=== PATIENT | female | born 1975 | race Caucasian/White ===

== ENCOUNTER 2016-08-09 12:19 | Emergency (ER) | payer MEDICARE ==
--- NOTE | ~2016-08-09 | US61 ---
[facility] A Service of [facility] RADIOLOGY TEXT RESULTS PATIENT: MONTSE BELL LOCATION: SED : 73 UNIT #: [id number] AGE: [address]: Rogerio Hanna MD SEX: F ORDER DR: [id number] [place] [id number] E MR#: [id number] Acc #: [id number] NAME: MONTSE BELL : 1975 SEX: F STUDY DATE/TIME: 08/09/2016 16:18 UNIT: SED ROOM: STUDY DESCRIPTION: US /Mat <[id number] / Attending Physician: Rogerio Hanna M.D. Referring Physician: Rogerio Hanna M.D. Ordering Physician: Rogerio Hanna M.D. Primary Care Physician: Michelle Avalos M.D. MEDICAL IMAGING REPORT This report is preliminary unless electronic signature is present. EXAM Pelvic ultrasound, transabdominal and transvaginal technique. DATE OF EXAM 08/09/2016 INDICATIONS 40-year-old female with a quantitative beta hCG of 1118, vaginal bleeding today. Sonographic imaging of the pelvis was performed transabdominally and then transvaginally for better evaluation of the adnexa and ovarian structures. COMPARISON No comparisons. FINDINGS TRANSABDOMINAL IMAGING Neither ovary identified transabdominally. Uterus visualize but better characterized transvaginally. TRANSVAGINAL IMAGING Uterus measures 8.4 x 4.5 x 6.1 cm. Fluid collection essentially within the uterus is present but nonspecific. No yolk sac or pole identified. Right ovary measures 2.1 x 1.7 cm and demonstrates good flow. Left ovary not clearly identified. No free fluid or drainable fluid collection. IMPRESSION [facility] A Service [facility] RADIOLOGY TEXT RESULTS PATIENT: MONTSE BELL LOCATION: SED : 73 UNIT #: [id number] AGE: [address]: Rogerio Hanna MD SEX: F ORDER DR: 1. No intrauterine identified in this patient with positive beta hCG. Fluid within the endometrial canal that is nonspecific. Based on the provided history and imaging features, the most likely explanation is a recent blighted ovum or early miscarriage. Early intrauterine or ectopic not excluded at this point but both are felt to be less likely. Suggest a repeat short-term followup ultrasound, MEDICAL OFFICE SUPERVISOR referral and repeat beta hCG levels to exclude the possibility of ectopic in this patient. 2. Right ovary unremarkable, left ovary not identified. STAT * RESULT Please note that this report did not become available for review or signature until 08/13/16 Dictated by... Rogerio Mcbride M.D. THIS IS AN ELECTRONICALLY VERIFIED REPORT Rogerio Mcbride M.D. at 08/13/2016 4:53 PM Delfina TD: 08/09/2016 17:05 JOB #: [id number] MEDICAL IMAGING REPORT Page 1 of 1
[2016-08-09] MEDS ORDERED: CELEXA (12:21)
[2016-08-09 13:35] LABS: URINE SOURCE CLEAN CATCH
[2016-08-09 13:37] LABS: BASOPHIL# 0.1 X10e3 (0-0.3); EOSINOPHIL# 0.1 X10e3 (0-0.7); MEAN PLATELET VOLUME 9.1 FL (6.5-11.5); MONOCYTE# 0.7 X10e3 (0-1.0); MONOCYTE% 4.8 % (3.0-12.0); NEUTROPHIL# 10.6 X10e3 (1.5-7.1)
[2016-08-09 13:38] LABS: URINE APPEARANCE CLEAR; URINE BILIRUBIN NEG (NEG); URINE BLOOD 2+ (NEG); URINE COLOR YELLOW; URINE GLUCOSE NEG (NORM); URINE KETONE NEG (NEG); URINE LEUKOCYTE ESTERASE NEG (NEG); URINE NITRATE NEG (NEG); URINE PH 6.5 (5-8); URINE PROTEIN TRACE (NEG)
[2016-08-09 13:39] LABS: MICRO INDICATED? YES
[2016-08-09 13:40] LABS: BASOPHIL% 0.6 % (0-2.5); EOSINOPHIL% 0.8 % (0.0-7.0); HEMATOCRIT 38.1 % (35.0-45.0); LYMPHOCYTE# 3.2 X10e3 (1.0-3.5); LYMPHOCYTE% 21.6 % (17.0-45.0); MEAN CELL VOLUME 89.2 FL (83-96); MEAN CORPUSCULAR HEMOGLOBIN 30.4 PG (28-34); MEAN CORPUSCULAR HGB CONC 34.1 g/dL (30-36); NEUTROPHIL% 72.2 % (40-75); PLATELET COUNT 257 X10e3 (140-420); RED BLOOD COUNT 4.27 X10e (3.90-5.30); RED CELL DISTRIBUTION WIDTH 14.4 % (11.0-15.5); WHITE BLOOD COUNT 14.7 X10e3 (4.0-10.5)
[2016-08-09 13:42] LABS: DIFF IND NO
[2016-08-09 13:49] LABS: CULTURE INDICATED? NO; URINE BACTERIA NEG (NEG); URINE MUCUS PRESENT; URINE SQUAMOUS EPITHELIAL CELL MODERATE /[HPF]
== END 2016-08-09 17:31 | disposition home or self-care (01) ==
LOC: SED 12:19
PROVIDERS: Emergency Medicine
DX: O03.9 Complete or unspecified spontaneous abortion without complication (principal); O99.340 Other mental disorders complicating pregnancy, unspecified trimester; F31.9 Bipolar disorder, unspecified; O99.330 Smoking (tobacco) complicating pregnancy, unspecified trimester; F17.200 Nicotine dependence, unspecified, uncomplicated
CPT/HCPCS: 36415; 76801; 76817; 81003; 84702; 85025; 99284